=== PATIENT | male | born 1990 | race Caucasian/White ===

== ENCOUNTER 2017-01-16 09:23 | Emergency (ER) | payer SELFPAY ==
[2017-01-16] MEDS ORDERED: Ketorolac INJ* 60 MG/2 ML VIAL IM ONE (10:07)
[2017-01-16] MEDS ORDERED: Dexamethasone IV* 4 MG/ML 1 ML (4 MG) IM ONE (10:07)
[2017-01-16] MEDS ORDERED: Methocarbamol TAB* 500 MG PO ONE (10:08)
--- NOTE | 2017-01-16 10:08 | RAD ---
Indication: Low back pain. Remote injury. Comparison: April 29, 2014 CT. Technique: AP and lateral views lumbar sacral spine. Report: Straightening relative to normal lumbar lordosis without spondylolisthesis at any level. No cortical disruption or trabecular impaction to indicate a vertebral body fracture. Moderate L5-S1 disc space narrowing with interval worsening. Mild L4-L5 and L5-S1 facet joint osteoarthritis. Unremarkable soft tissue contours. IMPRESSION: L5-S1 degenerative spondylosis with interval worsening. L4-L5 and L5-S1 mild facet joint osteoarthritis.
--- NOTE | 2017-01-16 11:13 | ED ---
Hector Rice Alfonso, scribed for Champ Blanchard MD on 01/16/17 at 1008 . Back Pain - HPI Summary HPI Summary: This patient is a 26 year old M presenting to [facility] accompanied by male with a chief complaint of low back pain since 10 days ago. He rates the pain 3/10 in severity. Symptoms aggravated by exertion and alleviated by nothing. Patient reports his job requires heavy lifting. Patient denies urinary symptoms, and bowel symptoms. PMHx of L5 spine injury with no surgery. - History of Current Complaint Chief Complaint: EDBackInjuryPain Stated Complaint: LOWER BACK PAIN Time Seen by Provider: 01/16/17 09:52 Hx Obtained From: Patient Onset/Duration: Sudden Onset, Lasting Days - 10, Still Present Timing: Constant Back Pain Location: Is Discrete @ - Low back Severity Initially: Moderate Severity Currently: Moderate Pain Intensity: 3 Pain Scale Used: 0-10 Numeric Aggravating Symptom(s): Movement - Exertion Alleviating Symptom(s): Nothing Associated Signs And Symptoms: Positive: Negative. Negative: Bladder Incontinence, Bowel Incontinence Related History: Previous Back Injury - L5 - Allergies/Home Medications Allergies/Adverse Reactions: Allergies Allergy/AdvReac Type Severity Reaction Status Date / Time Penicillins Allergy Unknown Unknown Verified 01/16/17 09:36 Reaction Details Codeine Allergy Difficulty Verified 01/16/17 09:36 Breathing PMH/Surg Hx/FS Hx/Imm Hx Endocrine/Hematology History: Denies: Hx Anticoagulant Therapy, Hx Diabetes, Hx Thyroid Disease Cardiovascular History: Denies: Hx Hypertension, Hx Pacemaker/ICD Respiratory History: Reports: Hx Asthma - CHILDHOOD Denies: Hx Chronic Obstructive Pulmonary Disease (COPD) History: Denies: Hx Renal Disease Musculoskeletal History: Reports: Other Musculoskeletal History - L5 spine injury with no surgery. Neurological History: Denies: Hx Dementia, Hx Seizures Psychiatric History: Denies: Hx Substance Abuse Infectious Disease History: Denies: Hx Hepatitis, Hx Human Immunodeficiency Virus (HIV), Traveled Outside the [place] in Last 30 Days - Family History Known Family History: Positive: Other - ETOH abuse Negative: Hypertension, Diabetes - Social History Alcohol Use: None Substance Use Type: Reports: None Hx Tobacco Use: No Smoking Status (MU): Former Smoker Review of Systems Positive: Other - Negative bowel symptoms Positive: no symptoms reported Musculoskeletal: Other - Positive low back pain All Other Systems Reviewed And Are Negative: Yes Physical Exam - Summary Physical Exam Summary: VITAL SIGNS: Reviewed. GENERAL: Patient is a well-developed and nourished male who is lying comfortable in the stretcher. Patient is not in any acute respiratory distress. HEAD AND FACE: No signs of trauma. No ecchymosis, hematomas or skull depressions. No sinus tenderness. EYES: PERRLA, EOMI x 2, No injected conjunctiva, no nystagmus. EARS: Hearing grossly intact. Ear canals and tympanic membranes are within normal limits. MOUTH: Oropharynx within normal limits. NECK: Supple, trachea is midline, no adenopathy, no JVD, no carotid bruit, no c- spine tenderness, neck with full ROM. CHEST: Symmetric, no tenderness at palpation LUNGS: Clear to auscultation bilaterally. No wheezing or crackles. CVS: Regular rate and rhythm, S1 and S2 present, no murmurs or gallops appreciated. ABDOMEN: Soft, non-tender. No signs of distention. No rebound no guarding, and no masses palpated. Bowel sounds are normal. BACK: Paraspinal muscle tenderness at left side of lumbar spine. EXTREMITIES: FROM in all major joints, no edema, no cyanosis or clubbing. NEURO: Alert and oriented x 3. No acute neurological deficits. Speech is normal and follows commands. SKIN: Dry and warm Triage Information Reviewed: Yes Vital Signs On Initial Exam: Initial Vitals Temp Pulse Resp BP Pulse Ox 97 F 101 16 146/88 97 01/16/17 09:36 01/16/17 09:36 01/16/17 09:36 01/16/17 09:36 01/16/17 09:36 Vital Signs Reviewed: Yes Diagnostics - Vital Signs Vital Signs Temp Pulse Resp BP Pulse Ox 01/16/17 09:36 97 F 101 16 146/88 97 - Laboratory Lab Statement: Any lab studies that have been ordered have been reviewed, and results considered in the medical decision making process. - Radiology Lumbar Spine X-Ray Radiology Interpretation Completed By: Radiologist - L5-S1 degenerative spondylosis with interval worsening. L4-L5 and L5-S1 mild facet joint osteoarthritis. Back Pain Course/Dx - Course Course Of Treatment: This patient is a 26 year old M presenting to [facility] accompanied by male with a chief complaint of low back pain since 10 days ago. He rates the pain 3/10 in severity. Symptoms aggravated by exertion and alleviated by nothing. Patient reports his job requires heavy lifting. Patient denies urinary symptoms, and bowel symptoms. PMHx of L5 spine injury with no surgery. Assessment/Plan: In the ED course the patient was given Decadron, Toradol, and Robaxin. Lumbar spine X-Ray reveals L5-S1 degenerative spondylosis with interval worsening. L4-L5 and L5-S1 mild facet joint osteoarthritis. After medications the pain has improved. The patient rates the pain 0/10. The patient is ambulating out of the ED. He will be discharged home with PCP follow up. Patient is hemodynamically stable and alert and oriented to person, place, and time. - Diagnoses Differential Diagnosis/HQI/PQRI: Positive: Fracture, Herniated Disc, Osteoporosis, Strain, Sprain Provider Diagnoses: Back pain Discharge - Discharge Plan Condition: Stable Disposition: HOME Prescriptions: Ibuprofen TAB* [Motrin TAB* 600 MG] 600 mg PO Q8H PRN #30 tab PRN Reason: Pain Methocarbamol [Robaxin-750 MG TAB] 750 mg PO TID #12 tab Methylprednisolone [Medrol Dosepak 4 MG*] 0 mg PO .SEE JAVED INSTRUCTION #1 pkt Patient Education Materials: Back Pain (ED) Forms: *Work Release Referrals: [facility] [[facility]] - 4 Days The documentation as recorded by the Hector watson Alfonso accurately reflects the service I personally performed and the decisions made by , Champ Blanchard MD.
[2017-01-16 12:02] VITALS: BP 131/80
== END 2017-01-16 12:01 | disposition home or self-care (01) ==
LOC: ED 09:23
DX: M54.5 Low back pain (principal); Z87.891 Personal history of nicotine dependence; Z88.0 Allergy status to penicillin; Z88.5 Allergy status to narcotic agent
CPT/HCPCS: 72100; 96372; 99282; A9270-GY; J1100; J1885

== ENCOUNTER 2018-02-12 07:10 | Emergency (ER) | payer SELFPAY ==
[2018-02-12] MEDS ORDERED: Ondansetron INJ* 2 MG/ML VIAL IV ONE (07:28)
[2018-02-12] MEDS ORDERED: Al Hydrox/Mg Hydrox/Simet LIQ* 30 ML UDC PO ONE (07:28)
[2018-02-12] MEDS ORDERED: NS 0.9% 1000 ML* 1,000 ML IV ONE (07:28)
[2018-02-12] MEDS ORDERED: Famotidine IV* 10 MG/ML 2 ML (20 mg) IV ONE (07:28)
--- NOTE | 2018-02-12 07:32 | ED ---
Nausea/Vomiting/Diarrhea HPI - HPI Summary HPI Summary: Patient's 27-year-old male presenting to the ED with concern over hematemesis and epigastric pain 3 days. He endorses drinking 18 beers 2 days ago and had one episode of vomiting with a small amount of blood. This morning, although she denied any alcohol last evening, he had one more episode of vomiting again with a small amount of blood. He states he used to drink 1 pint vodka daily, however he stopped drinking alcohol 6 months ago except for Sunday night. Denies any history of esophageal varices, hypertension, however has had episodes of hematemesis in the past. He quantifies it as approximately "an ounce." He denies any nausea at this time. Pain is currently rated a 2/10, not worse or better with positioning. Not worse or better with food intake. Patient is a nonsmoker. Never has been diagnosed the past with gastritis, duodenal or gastric ulcers. He has been diagnosed with GERD and has seen a GI specialist in the past who has given him Prilosec with good relief. He was placed on Prilosec for 1 month to 6 weeks at a time and soon after discontinuation of the medications, he would start to develop epigastric pain intermittently. He controls this well at home with Tums OTC. He denies any feelings of lightheadedness, syncopal episodes, visual changes, abdominal pain otherwise. Normal bowel movements without evidence of melena. - History of Current Complaint Chief Complaint: EDGIBleed Stated Complaint: ABD PAIN/VOMITING BLOOD Time Seen by Provider: 02/12/18 07:21 Hx Obtained From: Patient Onset/Duration: Sudden Onset Timing: Constant Severity Initially: Mild Severity Currently: Mild Pain Intensity: 2 Pain Scale Used: 0-10 Numeric Location: Epigastric Character: Burning Aggravating Factor(s): Nothing Alleviating Factor(s): Nothing Nausea/Vomiting Duration: 24-36 hours - 2x total Vomiting Characteristics: Bloody Diarrhea Presence: No - Risk Factors Influenza Risk Factors: Negative Surgical Obstruction Risk Factor(s): Negative - Allergies/Home Medications Allergies/Adverse Reactions: Allergies Allergy/AdvReac Type Severity Reaction Status Date / Time codeine Allergy Severe Difficulty Verified 02/12/18 08:25 Breathing Penicillins Allergy Unknown Unknown Verified 02/12/18 08:25 Reaction Details PMH/Surg Hx/FS Hx/Imm Hx Previously Healthy: Yes Endocrine/Hematology History: Denies: Hx Anticoagulant Therapy, Hx Diabetes, Hx Thyroid Disease Cardiovascular History: Denies: Hx Hypertension, Hx Pacemaker/ICD Respiratory History: Reports: Hx Asthma - CHILDHOOD Denies: Hx Chronic Obstructive Pulmonary Disease (COPD) History: Denies: Hx Renal Disease Musculoskeletal History: Reports: Other Musculoskeletal History - L5 spine injury with no surgery. Neurological History: Denies: Hx Dementia, Hx Seizures Psychiatric History: Denies: Hx Substance Abuse - Immunization History Hx Pertussis Vaccination: No Immunizations Up to Date: Yes Infectious Disease History: No Infectious Disease History: Denies: Hx Hepatitis, Hx Human Immunodeficiency Virus (HIV), Traveled Outside the [place] in Last 30 Days - Family History Known Family History: Positive: Other - ETOH abuse Negative: Hypertension, Diabetes - Social History Occupation: Employed Full-time Lives: With Family Alcohol Use: None Hx Substance Use: No Substance Use Type: Reports: None Hx Tobacco Use: No Smoking Status (MU): Former Smoker Review of Systems Constitutional: Negative Negative: Fever, Chills, Fatigue, Skin Diaphoresis Negative: Palpitations, Chest Pain Negative: Shortness Of Breath, Cough Positive: Abdominal Pain, Vomiting Genitourinary: Negative Positive: no symptoms reported, see HPI Musculoskeletal: Negative Skin: Negative All Other Systems Reviewed And Are Negative: Yes Physical Exam Triage Information Reviewed: Yes Vital Signs On Initial Exam: Initial Vitals Temp Pulse Resp BP Pulse Ox 96.0 F 89 18 160/95 97 02/12/18 07:13 02/12/18 07:13 02/12/18 07:13 02/12/18 07:13 02/12/18 07:13 Vital Signs Reviewed: Yes Appearance: Positive: No Pain Distress, Well-Nourished Skin: Positive: Warm, Skin Color Reflects Adequate Perfusion Head/Face: Positive: Normal Head/Face Inspection Eyes: Positive: EOMI, JO-ANN, Conjunctiva Clear Neck: Positive: Supple, No Lymphadenopathy Respiratory/Lung Sounds: Positive: Clear to Auscultation, Breath Sounds Present Cardiovascular: Positive: RRR, Pulses are Symmetrical in both Upper and Lower Extremities. Negative: Leg Edema Left, Leg Edema Right Abdomen Description: Positive: Soft, Other: - epigastric tenderness on deep palpation - not worse with positioning. Negative: CVA Tenderness (R), CVA Tenderness (L), Distended, Guarding, McBurney's Point Tenderness, Pulsatile Mass , Splenomegaly Musculoskeletal: Positive: Strength/ROM Intact. Negative: Edema Left, Edema Right Neurological: Positive: Sensory/Motor Intact, Alert, Oriented to Person Place, Time Psychiatric: Positive: Normal, Affect/Mood Appropriate AVPU Assessment: Alert Diagnostics - Vital Signs Vital Signs Temp Pulse Resp BP Pulse Ox 02/12/18 07:13 96.0 F 89 18 160/95 97 - Laboratory Result Diagrams: 02/12/18 07:38 02/12/18 07:38 Lab Statement: Any lab studies that have been ordered have been reviewed, and results considered in the medical decision making process. Naus/Vom/Diarrhea Course/Dx - Course Course Of Treatment: During the course of treatment, the patient is evaluated for 2 episodes of hematemesis over the past 3 days. He states the first episode was secondary to drinking a large amount of alcohol, however he did not drink last night and again had one episode of hematemesis this morning. He quantifies this is a small amount. Labs are obtained to assess for H&H which was WNL. Slightly elevated WBC, but denies fevers, sweats, chills or feeling ill otherwise. There is slight epigastric tenderness on palpation to the epigastric region without tenderness throughout all other quadrants. Negative Ohara's, no tenderness over McBurney's point, and negative Rovsing sign. No CVA tenderness bilaterally, denies any back pain outside of his usual every day back pain and denies any urinary symptoms. He appears well on physical exam. RRR. Lungs CTA. He is currently denying any nausea and pain remains a 2/10. He declines Maalox plus, however is willing to take Zofran and famotidine. He is feeling improved after arrival, but was concerned over his episodes of hematemesis. I believe this to be secondary to his GERD symptoms, and will treat with Prilosec. Will not start H. pylori treatment at this time, however if symptoms continue he will follow up with our GI specialist. - Differential Dx/Diagnosis Provider Diagnoses: Gastritis Discharge - Sign-Out/Discharge Documenting (check all that apply): Patient Departure - Discharge Plan Condition: Stable Disposition: HOME Referrals: No Primary Care Phys,NOPCP [Primary Care Provider] - Additional Instructions: Prilosec 20mg once daily x 30 days If symptoms persist - continue with prilosec daily follow-up with a GI specialist for further testings if symptoms persist, I have given your referral. - Billing Disposition and Condition Condition: STABLE Disposition: Home
[2018-02-12 07:50] LABS: ABS Basophils 0.1 10^3/ul (0-0.2); ABS Eosinophils 0.4 10^3/ul (0-0.6); ABS Lymphocytes 2.6 10^3/ul (1.0-4.8); ABS Monocytes 0.7 10^3/ul (0-0.8); ABS Neutrophils 9.1 10^3/ul (1.5-7.7); ABS Nucleated RBC 0 10^3/ul; Eosinophil % 3.3 % (0-6); Hematocrit 48 % (42-52); Hemoglobin 16.5 g/dl (14.0-18.0); Lymphocyte % 20.2 % (25-47); Mean Corpuscular HGB Conc 35 g/dl (31-36); Mean Corpuscular Hemoglobin 29 pg (27-31); Mean Corpuscular Volume 82 fL (80-94); Mean Platelet Volume 8.9 um3 (7.4-10.4); Nucleated Red Blood Cells % 0; Platelet Count 253 10^3/ul (150-450); Red Blood Count 5.78 10^6/ul (4.00-5.40); Red Cell Distribution Width 14 % (10.5-15); White Blood Count 12.9 10^3/ul (3.5-10.8)
[2018-02-12 07:58] LABS: INR 0.81 (0.77-1.02)
[2018-02-12 08:12] LABS: EGFR Non-African American 103.7 (>60)
[2018-02-12 08:59] VITALS: BP 130/99
== END 2018-02-12 08:54 | disposition home or self-care (01) ==
LOC: ED 07:10
DX: K29.70 Gastritis, unspecified, without bleeding (principal); K92.0 Hematemesis; Z87.891 Personal history of nicotine dependence; Z88.5 Allergy status to narcotic agent; Z88.2 Allergy status to sulfonamides
CPT/HCPCS: 36415; 80053; 83605; 83690; 83735; 85025; 85610; 86140; 93005; 96374; 96375; 99282; A9270-GY; J2405